=== PATIENT | male | born 2000 | race Caucasian/White ===

== ENCOUNTER 2023-02-16 12:48 | Emergency (ER) | payer OTHER ==
[~2023-02-16] VITALS: Ht 193 cm; Wt 83.6 kg
[2023-02-16] MEDS ORDERED: HYDR-3363 PO (15:53)
[2023-02-16 16:00] VITALS: BP 124/79; TEMP 98; O2SAT 99
== END 2023-02-16 16:02 | disposition home or self-care (01) ==
LOC: M ED 12:48
DX: G47.00 Insomnia, unspecified (principal); F90.9 Attention-deficit hyperactivity disorder, unspecified type

== ENCOUNTER 2023-03-18 09:38 | Inpatient (IN) | payer OTHER ==
[~2023-03-18] VITALS: Ht 193 cm; Wt 84.5 kg
[~2023-03-18 09:38] MED LIST: HYDR-3363 PO
[2023-03-18] MEDS ORDERED: MED REC IN PROGRESS XX SCH (11:05)
[2023-03-18 11:14] LABS: HEMATOCRIT 44.6 % (42.0-52.0); HEMOGLOBIN 15.1 g/dl (13.5-17.5); MEAN CORPUSCULAR HGB CONC 33.9 g/dl (32.0-36.5); MEAN CORPUSCULAR VOLUME 85.8 fl (80.0-96.0); PLATELET COUNT, AUTOMATED 214 10^3/uL (150-450); WHITE BLOOD COUNT 9.9 10^3/uL (4.0-10.0)
[2023-03-18] MEDS ORDERED: HOME MED LIST COMPLETE! XX SCH (11:20)
[2023-03-18 11:42] LABS: AMPHETAMINES LEVEL URINE NEGATIVE (NEGATIVE); BARBITURATES URINE NEGATIVE (NEGATIVE); BENZODIAZEPINES URINE NEGATIVE (NEGATIVE); COCAINE METABOLITE URINE NEGATIVE (NEGATIVE); METHADONE URINE NEGATIVE (NEGATIVE); OPIATES URINE NEGATIVE (NEGATIVE); PHENCYCLIDINE URINE NEGATIVE (NEGATIVE)
[2023-03-18 11:43] LABS: CANNABINOIDS URINE NEGATIVE (NEGATIVE); ETHYL ALCOHOL (ETHANOL) < 0.003 % (0.000-0.010)
[2023-03-18 11:44] LABS: ACETAMINOPHEN LEVEL < 2.0 UG/ML (10.0-20.0); SALICYLATE LEVEL < 3.0 MG/DL (<30)
[2023-03-18 11:45] LABS: ALBUMIN 4.4 G/DL (3.2-5.2); ALKALINE PHOSPHATASE 84 U/L (46-116); ALT/SGPT 13 U/L (7.0-40); AST/SGOT 15 U/L (<34); BILIRUBIN,DIRECT 0.1 MG/DL (<0.4); BILIRUBIN,TOTAL 0.5 MG/DL (0.3-1.2); BLOOD UREA NITROGEN 17 MG/DL (9-23); CALCIUM LEVEL 9.4 MG/DL (8.5-10.1); CARBON DIOXIDE LEVEL 28 MMOL/L (20-31); CHLORIDE LEVEL 105 MMOL/L (98-107); CREATININE FOR GFR 0.99 MG/DL (0.70-1.30); GLOMERULAR FILTRATION RATE > 60.0 (>60); GLUCOSE, FASTING 91 MG/DL (60-100); POTASSIUM SERUM 4.2 MMOL/L (3.5-5.1); SODIUM LEVEL 141 MMOL/L (136-145); TOTAL PROTEIN 7.4 G/DL (5.7-8.2)
[2023-03-18 11:48] LABS: THYROID STIMULATING HORMONE 1.033 uIU/ML (0.55-4.78)
[2023-03-18] MEDS ORDERED: MAALOX 30 ML SUSP *UDC PO PRN (13:35)
[2023-03-18] MEDS ORDERED: IBUPROFEN 400MG TAB PO PRN (13:35)
[2023-03-18] MEDS ORDERED: traZODone 50 MG TAB PO PRN (13:35)
[2023-03-18] MEDS ORDERED: MOM 30ML SUSPENSION UDC PO PRN (13:35)
[2023-03-18] MEDS ORDERED: ACETAMINOPHEN TAB 650MG DOSE (2X325MG) PO PRN (13:35)
[2023-03-18] MEDS ORDERED: diphenhydrAMINE 25MG CAP PO PRN (13:35)
[2023-03-18 15:30] VITALS: BP 130/68; TEMP 97.4; O2SAT 98
[2023-03-19 06:44] VITALS: BP 130/75; TEMP 97; O2SAT 100
[2023-03-19] MEDS ORDERED: OLANZapine ORAL DISINTEGRATING TAB 5MG PO PRN (10:55)
[2023-03-19] MEDS ORDERED: OLANZapine ORAL DISINTEGRATING TAB 5MG PO ONE (10:55)
[2023-03-19 17:19] VITALS: BP 126/81; TEMP 96.1; O2SAT 99
[2023-03-19] MEDS ORDERED: DIVALPROEX 125 MG TAB PO SCH (21:00)
[2023-03-20 07:01] VITALS: BP 116/68; TEMP 98.1; O2SAT 97
[2023-03-20 18:46] VITALS: BP 125/61; TEMP 97.8; O2SAT 100
[2023-03-20] MEDS: DIVALPROEX 250MG TAB PO SCH (21:10)
[2023-03-21 06:12] VITALS: BP 118/64; TEMP 97.7; O2SAT 98
[2023-03-21 18:39] VITALS: BP 131/74; TEMP 98; O2SAT 100
[2023-03-21] MEDS: DIVALPROEX 250MG TAB PO SCH (21:05)
[2023-03-22 07:05] VITALS: BP 126/68; TEMP 97.3; O2SAT 97
[2023-03-22 09:40] VITALS: BP 126/68; TEMP 97.3; O2SAT 97
[2023-03-22 18:39] VITALS: BP 120/70; TEMP 97.5; O2SAT 100
[2023-03-22] MEDS: DIVALPROEX 250MG TAB PO SCH (21:51)
[2023-03-23 06:43] VITALS: BP 120/65; TEMP 98.3; O2SAT 97
[2023-03-23] MEDS ORDERED: DEPA250T32 PO (09:29)
[2023-03-23 10:18] VITALS: BP 126/68; TEMP 97.3; O2SAT 97
== END 2023-03-23 11:38 | disposition home or self-care (01) | DRG 885 ==
LOC: M ED 09:38 → M ED INP 13:34 → M PSY 15:15
PROVIDERS: ADMIT Student in an Organized Health Care Education/Training Program; ATTEND Student in an Organized Health Care Education/Training Program
DX: F31.9 Bipolar disorder, unspecified (principal); R45.851 Suicidal ideations; F10.10 Alcohol abuse, uncomplicated; F41.9 Anxiety disorder, unspecified; M79.604 Pain in right leg; M79.605 Pain in left leg; F43.10 Post-traumatic stress disorder, unspecified; Z20.822 Contact with and (suspected) exposure to COVID-19